=== PATIENT | female | born 1990 | race Caucasian/White ===

== ENCOUNTER 2019-12-05 18:42 | Emergency (ER) | payer OTHER ==
[~2019-12-05] VITALS: Ht 162.6 cm; Wt 83.5 kg
[~2019-12-05 18:42] MED LIST: COL100 PO; KEFLEX500 MG PO; MOTRIN800 MG PO; NORCO1 TA2 PO; SOMA350 MG PO; ZOFRAN ODT4 MG SL
[2019-12-05 19:17] VITALS: Ht 162.6 cm; Wt 83.5 kg
[2019-12-05 22:18] VITALS: BP 128/80
== END 2019-12-05 22:18 | disposition home or self-care (01) ==
LOC: ED 18:42
DX: H10.32 Unspecified acute conjunctivitis, left eye (principal)

== ENCOUNTER 2020-03-02 23:46 | Emergency (ER) | payer OTHER ==
[~2020-03-02] VITALS: Ht 165.1 cm; Wt 82.6 kg
[2020-03-02 23:53] VITALS: Ht 165.1 cm; Wt 82.6 kg
[2020-03-03 01:25] LABS: BASOPHIL % 0.8 % (0-2); PLATELET COUNT 265 x10^3mcL (130-400); RED CELL DISTRIBUTION WIDTH 11.6 % (11.5-14.5)
[2020-03-03 01:51] LABS: CALCIUM 9.2 mg/dL (8.5-10.1); CARBON DIOXIDE 26.1 mmol/L (21-32); CHLORIDE SERUM 104 mmol/L (98-107); CREATININE SERUM 0.7 mg/dL (0.6-1.0); GFR1 > 60 mL/min; GLUCOSE SERUM 95 mg/dL (74-106); POTASSIUM SERUM 3.8 mmol/L (3.5-5.1); SODIUM SERUM 139 mmol/L (136-145)
[2020-03-03 01:56] LABS: ALKALINE PHOSPHATASE 45 U/L (46-116); ALT/SGPT 35 U/L (14-59); AST/SGOT 32 U/L (15-37); BILIRUBIN TOTAL 0.45 mg/dL (0.20-1.00); TOTAL PROTEIN, SERUM 7.1 g/dL (6.4-8.2)
[2020-03-03 04:42] LABS: AMPHETAMINE QUAL UR NONE DETECTED (See below)
[2020-03-03 11:04] VITALS: BP 94/56
== END 2020-03-03 11:04 | disposition home or self-care (01) ==
LOC: ED 23:46
PROVIDERS: Emergency Medicine
DX: F32.9 Major depressive disorder, single episode, unspecified (principal); R45.851 Suicidal ideations
CPT/HCPCS: 36415; G0480